=== PATIENT | female | born 1980 | race Caucasian/White ===

== ENCOUNTER 2017-11-16 08:17 | Emergency (ER) | payer OTHER, MEDICAID ==
[~2017-11-16] VITALS: Ht 160 cm; Wt 61.2 kg
[~2017-11-16 08:17] MED LIST: ATENOLOL 25 MG25 M1 PO; CIPRO500 MG PO; FLAGYL500 MG PO; HYDROCODONE-AP1 EAC6 PO; MACROBID 100 M100 M1 PO; PYRIDIUM200 MG PO; ZOFRAN ODT4 MG PO
[2017-11-16 08:44] LABS: ABSOLUTE BASOPHILS 0.1 thou/uL (0.0-0.2); ABSOLUTE EOSINOPHILS 0.1 thou/uL (0.0-0.7); ABSOLUTE LYMPHOCYTES 2.6 thou/uL (0.8-5.3); ABSOLUTE MONOCYTES 0.6 thou/uL (0.0-1.2); ABSOLUTE NEUTROPHILS 5.5 thou/uL (1.6-8.1); BASOPHILS 0.8 %; EOSINOPHILS 1.7 %; HEMATOCRIT 45.1 % (37.0-47.0); HEMOGLOBIN 15.4 gm/dL (12.0-15.0); LYMPHOCYTES 28.8 %; MCH 29.7 pg (26.0-34.0); MCHC 34.2 g/dL (28.0-37.0); MCV 86.9 fL (80.0-100.0); MPV 8.4 fl. (7.2-11.1); NUCLEATED RBCS 0 /100WBC; PLATELET COUNT* 297 thou/uL (150-400); POLYS 61.7 %; RBC 5.19 mil/uL (4.20-5.00); RDW-CV 13.6 % (10.5-14.5); WBC 8.9 thou/uL (4.0-11.0)
[2017-11-16] MEDS ORDERED: ATENOLOL 25 MG25 M1 PO (08:49)
[2017-11-16] MEDS ORDERED: MIDODRINE HCL 55 M1 PO (08:50)
[2017-11-16 08:55] LABS: ANION GAP 10 mmol/L (7-16); BUN 10 mg/dL (7-18); CALCIUM 8.6 mg/dL (8.5-10.1); CHLORIDE 105 mmol/L (98-107); CO2 28 mmol/L (21-32); CREATININE 0.7 mg/dL (0.6-1.3); GLUCOSE 65 mg/dL (70-99); POTASSIUM 3.5 mmol/L (3.5-5.1); SODIUM 143 mmol/L (136-145)
[2017-11-16 09:05] LABS: ALKALINE PHOSPHATASE 48 U/L (46-116); LIPASE 80 U/L (73-393); NT-PRO BRAIN NAT PEPTIDE 60 pg/mL (<300); SGOT 12 U/L (15-37); SGPT 17 U/L (30-65); TOTAL BILIRUBIN 0.2 mg/dL (<0.1-1.0); TOTAL PROTEIN 7.8 g/dL (6.4-8.2); TROPONIN-I LEVEL <0.06 ng/mL (<0.06)
--- NOTE | 2017-11-16 11:52 | EKG ---
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: KARINA : 1980 Requested By: Mina Moura Order Number: [id number] MD: Nathan Yancey Measurements Intervals [place] Rate: 103 P: 39 MO: 130 QRS: 53 QRSD: 80 T: 21 QT: 368 QTc: 482 Interpretive Statements Sinus tachycardia Borderline prolonged QT interval Baseline wander in lead(s) I,III,aVL No previous ECG available for comparison Electronically Signed On 11-16-2017 11:52:23 CDT by Nathan Yancey [email or web address] <ELECTRONICALLY SIGNED> By: Nathan Yancey MD, [facility] 11/16/17 1152 822 1 Nathan Yancey MD, FACC /EPI
[2017-11-16] MEDS ORDERED: CIPRO500 MG PO (11:57)
[2017-11-16] MEDS ORDERED: PHENERGAN 25 MG25 M1 PO (11:57)
[2017-11-16 12:25] VITALS: BP 100/55
--- NOTE | 2017-11-16 15:55 | EKG ---
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 Hand: [place] : 1980 Requested By: Mina Moura Order Number: [id number] MD: Nathan Yancey Measurements Intervals [place] Rate: 81 P: -38 TN: 141 QRS: 61 QRSD: 84 T: 41 QT: 424 QTc: 493 Interpretive Statements Sinus rhythm Prolonged QT interval Compared to ECG 11/16/2017 08:22:49 Sinus tachycardia no longer present Electronically Signed On 11-16-2017 15:55:40 CDT by Nathan Yancey [email or web address] <ELECTRONICALLY SIGNED> By: Nathan Yancey MD, [facility] 11/16/17 1555 1101 00 Nathan Yancey MD, FACC /EPI
== END 2017-11-16 12:25 | disposition home or self-care (01) ==
LOC: M.ERS 08:17
PROVIDERS: Emergency Medicine Emergency Medical Services
DX: K52.9 Noninfective gastroenteritis and colitis, unspecified (principal); R07.89 Other chest pain; Z90.710 Acquired absence of both cervix and uterus; Z88.2 Allergy status to sulfonamides